=== PATIENT | female | born 1975 | race Hispanic/Latino ===

== ENCOUNTER 2019-09-18 18:52 | Inpatient (IN) | payer SELFPAY ==
[2019-09-18] MEDS ORDERED: NA CHLORIDE 0.9% 2,000 ML ONE (19:16)
[2019-09-18] MEDS ORDERED: IBUPROFEN 400 MG TAB ONE (19:28)
[2019-09-18] MEDS ORDERED: Levofloxacin 750mg IV 750 MG/150 ML BAG IV ONE (19:28)
[2019-09-18] MEDS ORDERED: IBUPROFEN 200 MG TAB PO ONE (19:28)
--- NOTE | 2019-09-18 19:46 | RAD REPORT ---
EXAM DESCRIPTION: RAD - Chest Single View - 09/18/2019 7:38 pm CLINICAL HISTORY: abd pain Chest pain. COMPARISON: No comparisons FINDINGS: Portable technique limits examination quality. The lungs are underinflated resulting in vascular crowding. The heart is normal in size. No displaced fractures. IMPRESSION: Underinflated lungs.
[2019-09-18 19:48] LABS: Absolute Lymphocytes (CBC) 0.6 K/uL (0.7-4.9); Basophils % 0.3 % (0-1.3); Hematocrit 34.2 % (36.0-45.0); MPV 9.5 fL (7.6-11.3); RBC Red Blood Cell Count 3.72 M/uL (3.86-4.86)
[2019-09-18 19:56] LABS: Protime INR 1.2
[2019-09-18 20:19] LABS: ALT/SGPT 14 U/L (12-78); AST/SGOT 11 U/L (15-37); Alkaline Phosphatase 74 U/L (45-117); BUN Blood Urea Nitrogen 16 mg/dL (7-18); Bicarbonate 25 mmol/L (21-32); Bilirubin Direct < 0.1 mg/dL (0-0.2); Bilirubin Total 0.3 mg/dL (0.2-1.0); CKMB Creatine Kinase MB < 1.0 ng/mL (0.3-3.6); Creatine Phosphokinase 16 U/L (26-192); Glucose Level 159 mg/dL (74-106); Lipase 73 U/L (73-393); Potassium 3.1 mmol/L (3.5-5.1); Protein, Total 6.2 g/dL (6.4-8.2); Sodium Level 135 mmol/L (136-145); Troponin (Emerg Dept Use Only) < 0.02 ng/mL (0.0-0.045)
[2019-09-18 20:21] LABS: Urine Blood 2+ (NEG); Urine Glucose NEGATIVE (NEG); Urine Protein 2+ (NEG); Urine pH 6.5 (5.0-7.0)
[2019-09-18 20:31] LABS: Urine Bacteria 20-50 /HPF (<20); Urine Culture Reflex Order REFLEXED
--- NOTE | 2019-09-18 20:50 | RAD REPORT ---
EXAM DESCRIPTION: CTAbdomen Pelvis W Contrast - 09/18/2019 8:36 pm CLINICAL HISTORY: Abdominal pain. ABD PAIN COMPARISON: <Comparisons> TECHNIQUE: Biphasic CT imaging of the abdomen and pelvis was performed with 100 ml non-ionic IV cont rast. All CT scans are performed using dose optimization technique as appropriate and may include automated exposure control or mA/KV adjustment according to patient size. FINDINGS: Mild subsegmental atelectasis is present in the right lung base. Innumerable varying size cysts are present throughout the liver. No biliary dilatation seen. The sple en, adrenal glands and pancreas are within normal limits. Innumerable cysts are present involving both kidneys. Mild perinephric inflammation is seen along the inferior margin of the right kidney. No bowel obstruction, free air, free fluid or abscess. The appendix is normal. No evidence of signi ficant lymphadenopathy. No suspicious bony findings. IMPRESSION: Polycystic kidney disease is present with mild inferiorly located perinephric inflammati on seen on the right. This may be result of recent cyst rupture or hemorrhage within a small cyst. Numerous benign-appearing hepatic cysts.
--- NOTE | 2019-09-18 21:15 | ER ---
Nurse's Notes [facility] Name: Patricia Eaton Age: 43 yrs Sex: Female : 1975 Arrival Date: 09/18/2019 Time: 18:57 Bed 15 Private MD: Diagnosis: Polycystic kidney, adult type;Acute Pyelonephritis Presentation: 09/18 19:05 Presenting complaint: EMS states: Pt C/O RLQ pain radiating to her Right flank for a wh week now, was seen by PCP yesterday and was given a shot and was advised to come back today but Pt said she wasn't able to come back to PCP because she was feeling earlier. Pt also C/O palpitations. Transition of care: patient was not received from another setting of care. Onset of symptoms was September 18, 2019. Risk Assessment: Do you want to hurt yourself or someone else? Patient reports no desire to harm self or others. Initial Sepsis Screen: Does the patient meet any 2 criteria? Temp <36.0*C (96.8*F)) or > 38.3*C (100.9*F). HR > 90 bpm. Does the patient have a suspected source of infection? Yes: Acute abdominal pain. Care prior to arrival: Medication(s) given: Normal saline infusion, 1000 mL, Fentanyl 50 mcg IV initiated. 20 GA, in the right antecubital area. 19:05 Method Of Arrival: EMS: [facility] 19:05 Acuity: CLARA 3 Triage Assessment: 19:38 General: Appears. 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 - Social history:: Smoking status: Patient/guardian denies using tobacco. - Ebola Screening: : Patient negative for fever greater than or equal to 101.5 degrees Fahrenheit, and additional compatible Ebola Virus Disease symptoms Patient denies exposure to infectious person. Screenin:38 Abuse screen: Denies threats or abuse. Denies injuries from another. Nutritional screening: No deficits noted. Tuberculosis screening: No symptoms or risk factors identified. Fall Risk None identified. Assessment: 19:39 General: Appears in no apparent distress. Behavior is calm, cooperative, appropriate for age. Pain: Complains of pain in right upper quadrant and right lower quadrant Pain radiates to back Pain currently is 6 out of 10 on a pain scale. Quality of pain is described as aching, Pain began a week ago. Neuro: Level of Consciousness is awake, alert, obeys commands, Oriented to person, place, time, situation, Appropriate for age. Cardiovascular: Heart tones S1 S2 Rhythm is sinus tachycardia. Respiratory: Airway is patent Respiratory effort is even, unlabored, Respiratory pattern is regular, symmetrical, Breath sounds are clear bilaterally. GI: Abdomen is flat, non-distended, Bowel sounds present X 4 quads. Abd is soft. : No signs and/or symptoms were reported regarding the genitourinary system. EENT: No signs and/or symptoms were reported regarding the EENT system. Derm: Skin is intact, is healthy with good turgor, Skin is pink, warm \T\ dry. normal. Musculoskeletal: Circulation, motion, and sensation intact. 21:01 Reassessment: Patient appears in no apparent distress at this time. No changes from previously documented assessment. Patient and/or family updated on plan of care and expected duration. Pain level reassessed. Patient is alert, oriented x 3, equal unlabored respirations, skin warm/dry/pink. Vital Signs: 19:10 BP 131 / 90; Pulse 138; Resp 18; Temp 103.2; Pulse Ox 97% ; Weight 52.16 kg; Height 5 wh ft. 2 in. (157.48 cm); Pain 6/10; 19:43 BP 126 / 82; Pulse 125; Resp 18; Pulse Ox 100% ; wh 21:01 BP 114 / 80; Pulse 115; Resp 18; Temp 99.8; Pulse Ox 100% ; wh 19:10 Body Mass Index 21.03 (52.16 kg, 157.48 cm) ED Course: 18:57 Patient arrived in ED. rb1 19:05 Mariano Duarte is Primary Nurse. 19:09 Triage completed. 19:13 Sriram Hill PA is PHCP. [facility] 19:13 Billy Gold MD is Attending Physician. [facility] 19:15 Inserted saline lock: 20 gauge in left antecubital area, using aseptic technique. Blood collected. By Chuyita Blanca RN. 19:37 Chest Single View XRAY In Process Unspecified. EDTX 19:38 Arm band placed on left wrist. 19:38 Patient has correct armband on for positive identification. Placed in gown. Bed in low wh position. Call light in reach. Side rails up X 1. environmental monitoring technician on. Pulse ox on. NIBP on. 20:36 CT Abd/Pelvis - IV Contrast Only In Process Unspecified. EDMS 21:13 Elmer Grant MD is Hospitalizing Provider. [facility] 21:40 No provider procedures requiring assistance completed. Patient admitted, IV remains in place. Administered Medications: 19:15 Drug: NS 0.9% (30 ml/kg) 30 ml/kg Route: IV; Rate: bolus; Site: right antecubital; 09/19 02:00 Follow up: IV Status: Completed infusion; IV Intake: 1500ml 09/18 19:36 Drug: LevaQUIN 750 mg Volume: 150 ml; Route: IVPB; Infused Over: 90 mins; Site: left antecubital; 19:36 Drug: Motrin 600 mg Route: PO; 09/19 01:59 Follow up: Response: No adverse reaction; Temperature is decreased Intake: 02:00 IV: 1500ml; Total: 1500ml. Outcome: 09/18 21:15 Decision to Hospitalize by Provider. [facility] 21:45 Admitted to Med/surg accompanied by tech, via wheelchair, room , with chart, Report called to Viridiana Nolan RN 21:45 Condition: stable 21:45 Instructed on the need for admit. 22:17 Patient left the ED. Signatures: Dispatcher [employer] EDMS Sriram Hill PA PA jmm Barber, Rebecca, RN Mariano Joy
--- NOTE | 2019-09-18 21:16 | EDPHYS ---
Physician Documentation [facility] Name: Patricia Eaton Age: 43 yrs Sex: Female : 1975 Arrival Date: 09/18/2019 Time: 18:57 Bed 15 Private MD: ED Physician Billy Gold HPI: 09/18 19:35 This 43 yrs old Female presents to ER via EMS with complaints of abdominal jmm pain, fever. 19:35 The patient presents with abdominal pain in the epigastric area, in the upper abdomen, jmm in the lower abdomen. Onset: The symptoms/episode began/occurred gradually, 4 day(s) ago. The symptoms do not radiate. Associated signs and symptoms: Pertinent positives: nausea, palpitations. This is a 43 year old female with a history of kidney stones that presents to the ED with complaints of abdominal pain beginning this past . Patient was seen by pcp yesterday and advised to return if symptoms worsen. patient also complains of mild cough. . 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 - Social history:: Smoking status: Patient/guardian denies using tobacco. - Ebola Screening: : Patient negative for fever greater than or equal to 101.5 degrees Fahrenheit, and additional compatible Ebola Virus Disease symptoms Patient denies exposure to infectious person. ROS: 19:35 Constitutional: Positive for fever. jmm 19:35 Respiratory: Positive for cough. 19:35 Abdomen/GI: Positive for abdominal pain. 19:35 All other systems are negative. Exam: 19:35 Head/Face: atraumatic. Eyes: EOMI, no conjunctival erythema appreciated ENT: Moist jmm Mucus Membranes Neck: Trachea midline, Supple Chest/axilla: Normal chest wall appearance and motion. 19:35 Constitutional: The patient appears alert, awake, uncomfortable. 19:35 Cardiovascular: Rate: tachycardic, Rhythm: regular. 19:35 Respiratory: the patient does not display signs of respiratory distress, Respirations: normal, Breath sounds: are clear throughout. 19:35 Abdomen/GI: Inspection: abdomen appears normal, Bowel sounds: normal, Palpation: soft, moderate abdominal tenderness, in the epigastric area, right upper quadrant and right lower quadrant. 19:35 Musculoskeletal/extremity: ROM: intact in all extremities. 19:35 Skin: Appearance: Color: normal in color. 19:35 Neuro: Orientation: is normal, Mentation: is normal, Memory: is normal. 19:35 Psych: Behavior/mood is pleasant, cooperative. Vital Signs: 19:10 BP 131 / 90; Pulse 138; Resp 18; Temp 103.2; Pulse Ox 97% ; Weight 52.16 kg; Height 5 wh ft. 2 in. (157.48 cm); Pain 6/10; 19:43 BP 126 / 82; Pulse 125; Resp 18; Pulse Ox 100% ; wh 21:01 BP 114 / 80; Pulse 115; Resp 18; Temp 99.8; Pulse Ox 100% ; wh 19:10 Body Mass Index 21.03 (52.16 kg, 157.48 cm) MDM: 19:16 Patient medically screened. suzi 21:11 Data reviewed: vital signs, nurses notes. Counseling: I had a detailed discussion with fracisco the patient and/or guardian regarding: the historical points, exam findings, and any diagnostic results supporting the discharge/admit diagnosis, lab results, radiology results, the need for further work-up and treatment in the hospital. ED course: I discussed the patient with Dr. Grant whom accepted admission. . 09/18 19:13 Order name: Basic Metabolic Panel 09/18 19:13 Order name: Blood Culture Adult (2) 09/18 19:13 Order name: CBC with Diff 09/18 19:13 Order name: Ckmb 09/18 19:13 Order name: CPK; Complete Time: 20:26 09/18 19:13 Order name: Lactate; Complete Time: 20:34 09/18 19:13 Order name: LFT's; Complete Time: 20:26 09/18 19:13 Order name: Lipase; Complete Time: 20:26 09/18 19:13 Order name: Procalcitonin 09/18 19:13 Order name: Protime (+inr); Complete Time: 20:13 09/18 19:13 Order name: Ptt, Activated; Complete Time: 20:13 09/18 19:13 Order name: Troponin (emerg Dept Use Only); Complete Time: 20:26 09/18 19:13 Order name: Urine Microscopic Only; Complete Time: 20:34 09/18 19:14 Order name: Basic Metabolic Panel; Complete Time: 20:26 [facility] 09/18 19:14 Order name: Blood Culture [facility] 09/18 19:14 Order name: CBC with Automated Diff EDMS 09/18 19:14 Order name: CKMB Creatine Kinase MB; Complete Time: 20:26 [facility] 09/18 19:15 Order name: Flu; Complete Time: 20:34 [facility] 09/18 19:30 Order name: Glucose, Ancillary Testing; Complete Time: 19:32 [facility] 09/18 19:57 Order name: Urine Dipstick--Ancillary (enter results); Complete Time: 20:26 [facility] 09/18 20:33 Order name: Urine Culture [facility] 09/18 21:16 Order name: Manual Differential [facility] 09/18 21:25 Order name: CBC with Automated Diff EDKS 09/18 21:25 Order name: CBC with Automated Diff EDMS 09/18 21:25 Order name: Comprehensive Metabolic Panel [facility] 09/18 21:25 Order name: Comprehensive Metabolic Panel [facility] 09/18 21:25 Order name: Magnesium EDKS 09/18 21:25 Order name: Magnesium [facility] 09/18 21:25 Order name: Phosphorus EDKS 09/18 19:13 Order name: Chest Single View XRAY; Complete Time: 20:26 09/18 19:13 Order name: Accucheck; Complete Time: 19:37 09/18 19:13 Order name: Cardiac monitoring; Complete Time: 19:37 09/18 19:13 Order name: EKG - Nurse/Tech; Complete Time: 19:37 09/18 19:13 Order name: IV Saline Lock - Large Bore; Complete Time: 19:37 09/18 19:13 Order name: Labs collected and sent; Complete Time: 19:37 09/18 19:13 Order name: O2 Per Protocol; Complete Time: 19:37 09/18 19:13 Order name: O2 Sat Monitoring; Complete Time: 19:36 09/18 19:13 Order name: Urine Dipstick-Ancillary (obtain specimen); Complete Time: 19:56 09/18 19:15 Order name: CT Abd/Pelvis - IV Contrast Only; Complete Time: 20:52 [facility] 09/18 21:25 Order name: Regular EDMS 09/18 21:25 Order name: Phosphorus [facility] Administered Medications: 19:15 Drug: NS 0.9% (30 ml/kg) 30 ml/kg Route: IV; Rate: bolus; Site: right antecubital; 09/19 02:00 Follow up: IV Status: Completed infusion; IV Intake: 1500ml 09/18 19:36 Drug: LevaQUIN 750 mg Volume: 150 ml; Route: IVPB; Infused Over: 90 mins; Site: left antecubital; 19:36 Drug: Motrin 600 mg Route: PO; 09/19 01:59 Follow up: Response: No adverse reaction; Temperature is decreased Disposition: 18:35 Co-signature as Attending Physician, Billy Gold MD I agree with the assessment and suzi plan of care. Disposition: 09/18/19 21:15 Hospitalization ordered by Elmer Grant for Observation. Preliminary diagnosis are Polycystic kidney, adult type, Acute Pyelonephritis. - Bed requested for Telemetry/MedSurg (observation). - Status is Observation. - Condition is Stable. - Problem is new. - Symptoms have improved. UTI on Admission? Yes Signatures: Dispatcher [employer] EDKS Billy Gold MD MD cha Mickail, Joel, PA PA [facility] Ellis Da Silva [facility] Mariano Duarte Corrections: (The following items were deleted from the chart) 09/18 21:16 19:52 CBC Smear Scan ordered. [facility] 21:36 21:15 Hospitalization Ordered by Elmer Grant MD for Observation. Preliminary jd2 diagnosis is Polycystic kidney, adult type; Acute Pyelonephritis. Bed requested for Telemetry/MedSurg (observation). Status is Observation. Condition is Stable. Problem is new. Symptoms have improved. UTI on Admission? Yes. [facility] 22:17 21:36 09/18/2019 21:15 Hospitalization Ordered by Elmer Grant MD for Observation. Preliminary diagnosis is Polycystic kidney, adult type; Acute Pyelonephritis. Bed requested for Telemetry/MedSurg (observation). Status is Observation. Condition is Stable. Problem is new. Symptoms have improved. UTI on Admission? Yes. jd2
[2019-09-18 21:18] LABS: Blood Morphology Comment NOT SEEN (NOT SEEN); Platelet Estimate ADEQ
[2019-09-18] MEDS ORDERED: ONDANSETRON 4 MG/2 ML VIAL IV PRN (21:20)
[2019-09-18] MEDS ORDERED: MORPHINE 2 MG/ML SYR IV PRN (21:22)
--- NOTE | 2019-09-18 21:28 | P.HP ---
Certification for Inpatient Patient admitted to: Inpatient With expected LOS: >2 Midnights Patient will require the following post-hospital care: None Practitioner: I am a practitioner with admitting privileges, knowledge of patient current condition, hospital course, and medical plan of care. Services: Services provided to patient in accordance with Admission requirements found in Title 42 Section 412.3 of the Code of Federal Regulations Patient History Date of Service: 09/18/19 Reason for admission: Fevers chills, flank pain possible pyelonephritis History of Present Illness: 43-year-old fees panic female with no significant past medical history came to ER with fever and chills and along with flank pain on the right side which has been going on for the last 2 days and been progressively worsening, she was seen in the PCPs office and had an antibiotic injection but as she continued to have spiking of fever and pain and was brought to ER Patient denies any nausea vomiting no sick contacts No chest pain or shortness of breath Patient was assessed in the ER and workup was consistent with possible pyelonephritis and was admitted for further management. Home medications list reviewed: Yes - Past Medical/Surgical History Past Medical History: Reviewed- Non-Contributory Past Surgical History: Reviewed- Non-Contributory -: - Family History Family History: Reviewed- Non-Contributory - Social History Smoking Status: Never smoker Physical Examination - Vital Signs Temperature: 102.2 F Blood Pressure: 122/76 Pulse: 82 Respirations: 18 - Physical Exam General: Alert, In no apparent distress, Oriented x3 HEENT: Atraumatic, Normocephalic Neck: Supple, 2+ carotid pulse no bruit Respiratory: Clear to auscultation bilaterally, Normal air movement Cardiovascular: Normal pulses, Regular rate/rhythm Capillary refill: <2 Seconds Gastrointestinal: Soft and benign, W/out hepatosplenomegaly, Tenderness Musculoskeletal: No clubbing, No swelling Integumentary: No rashes, No breakdown Neurological: Normal speech, Normal strength at 5/5 x4 extr Lymphatics: No axilla or inguinal lymphadenopathy Urinary: Other (No bladder distention, Tenderness in the right flank) External genitalia: Deferred Rectal: Deferred - Studies Laboratory Data (last 24 hrs) 09/18/19 19:20: PT 14.1 H, INR 1.20, APTT 30.1 09/18/19 19:20: WBC 12.5 H, Hgb 11.6 L, Hct 34.2 L, Plt Count 166 09/18/19 19:20: Sodium 135 L, Potassium 3.1 L, BUN 16, Creatinine 1.34 H, Glucose 159 H, Total Bilirubin 0.3, AST 11 L, ALT 14, Alkaline Phosphatase 74, Lipase 73 Microbiology Data (last 24 hrs): 09/18/19 19:20 Nasopharnyx Influenza Type A Antigen Screen - Final 09/18/19 19:20 Nasopharnyx Influenza Type B Antigen Screen - Final Assessment and Plan - Problems (Diagnosis) (1) Pyelonephritis Current Visit: Yes Status: Acute (2) Acute kidney injury Current Visit: Yes Status: Acute (3) Hyponatremia Current Visit: Yes Status: Acute (4) Hypokalemia Current Visit: Yes Status: Acute (5) Sepsis Current Visit: Yes Status: Acute (6) Polycystic kidney Current Visit: Yes Status: Acute - Plan Pyelonephritis Acute kidney injury Hyponatremia Hypokalemia Polycystic kidney Sepsis Dehydration Plan monitor under telemetry Aggressive hydration IV antibiotics after getting cultures change antibiotic as per the sensitivity Electrolytes replaced Pain control monitor BMP daily GI/DVT prophylaxis - Advance Directives Does patient have a Living Will: No Does patient have a Durable POA for Healthcare: No Time Spent Managing Pts Care (In Minutes): 46
[2019-09-18] MEDS: NA CHLORIDE 0.9% 1,000 ML IV SCH (22:00)
[2019-09-18] MEDS ORDERED: Levofloxacin 750mg IV 750 MG/150 ML BAG IV SCH (22:00)
[2019-09-18 22:15] VITALS: BMI 24.1
[2019-09-18] MEDS ORDERED: POTASSIUM CL SA 10 MEQ TAB PO ONE ×2 (23:00→23:36)
[2019-09-19 06:32] LABS: Absolute Lymphocytes (CBC) 0.6 K/uL (0.7-4.9); Basophils % 0.2 % (0-1.3); Hematocrit 30.8 % (36.0-45.0); Lymphocytes % 5.4 % (15.3-44.8); MPV 9.2 fL (7.6-11.3); RBC Red Blood Cell Count 3.32 M/uL (3.86-4.86)
[2019-09-19 06:52] LABS: Albumin 1.8 g/dL (3.4-5.0); Bilirubin Total 0.2 mg/dL (0.2-1.0); Magnesium 2.3 mg/dL (1.8-2.4); Phosphorus 1.3 mg/dL (2.5-4.9); Potassium 3.8 mmol/L (3.5-5.1); Protein, Total 5.7 g/dL (6.4-8.2)
[2019-09-19] MEDS: NA CHLORIDE 0.9% 1,000 ML IV SCH ×2 (07:14→18:50)
[2019-09-19] MEDS ORDERED: NA CHLORIDE 0.9% 1,000 ML ONE (07:15)
[2019-09-19] MEDS ORDERED: POTASSIUM CL SA 10 MEQ TAB PO ONE ×2 (08:15→09:00)
[2019-09-19] MEDS: POTASS/SODIUM PHOSPHATE 1 PKT POWD.PACK PO SCH ×3 (08:58→11:47)
--- NOTE | 2019-09-19 11:30 | P.PN ---
Subjective Date of Service: 09/19/19 Chief Complaint: Fevers chills, flank pain possible pyelonephritis The patient reports less pain in her right flank today. She had fever yesterday. Blood culture is growing Gram negative rods. She denies any nausea or vomiting and tolerating feeding. Physical Examination - Vital Signs Temperature: 98.2 F Blood Pressure: 109/75 Pulse: 109 Respirations: 20 Pulse Ox (%): 100 - Physical Exam General: Alert, In no apparent distress, Oriented x3 HEENT: Mucous membr. moist/pink Neck: JVD not distended Respiratory: Clear to auscultation bilaterally, Normal air movement Cardiovascular: No edema, Regular rate/rhythm (Tachycardic), Normal S1 S2 Gastrointestinal: Normal bowel sounds, Soft and benign, Non-distended, No tenderness, Other (Right costovertebral angle tenderness.) Integumentary: No rashes, No erythema Neurological: Normal speech, Normal strength at 5/5 x4 extr - Studies Laboratory Data (last 24 hrs) 09/18/19 19:20: PT 14.1 H, INR 1.20, APTT 30.1 09/18/19 19:20: WBC 12.5 H, Hgb 11.6 L, Hct 34.2 L, Plt Count 166 09/18/19 19:20: Sodium 135 L, Potassium 3.1 L, BUN 16, Creatinine 1.34 H, Glucose 159 H, Total Bilirubin 0.3, AST 11 L, ALT 14, Alkaline Phosphatase 74, Lipase 73 Microbiology Data (last 24 hrs): 09/18/19 19:20 Blood - Blood Gram Stain - Final 09/18/19 19:25 Blood - Blood Gram Stain - Final 09/18/19 19:20 Nasopharnyx Influenza Type A Antigen Screen - Final 09/18/19 19:20 Nasopharnyx Influenza Type B Antigen Screen - Final Assessment And Plan - Current Problems (Diagnosis) (1) Gram negative sepsis Current Visit: Yes Status: Acute (2) Pyelonephritis Current Visit: Yes Status: Acute (3) Polycystic kidney Current Visit: Yes Status: Chronic (4) Sepsis Current Visit: Yes Status: Acute - Plan Continue IV Levaquin Add IV Azactam Repeat blood culture today. Follow blood cultures and urine culture for organism identification and sensitivity. Supportive measures-IV hydration and pain management.
[2019-09-19] MEDS: ACETAMINOPHEN 500 MG TAB PO PRN (11:47)
[2019-09-19] MEDS ORDERED: AZTREONAM 1 GM/VIAL IV SCH (12:00)
[2019-09-19] MEDS ORDERED: AZTREONAM 1 GM/50 ML BAG IV SCH (13:00)
[2019-09-19] MEDS: AZTREONAM 1 GM in NA CHLORIDE 0.9% 100 ML IV SCH ×2 (13:01→17:14)
[2019-09-19] MEDS: HYDROCODONE/APAP 7.5/325 MG TAB PO PRN (17:12)
[2019-09-19] MEDS: Levofloxacin 750mg IV 750 MG/150 ML BAG IV SCH (21:02)
[2019-09-20] MEDS: ACETAMINOPHEN 500 MG TAB PO PRN ×2 (00:19→20:56)
[2019-09-20] MEDS: AZTREONAM 1 GM in NA CHLORIDE 0.9% 100 ML IV SCH ×3 (00:20→18:47)
[2019-09-20] MEDS: NA CHLORIDE 0.9% 1,000 ML IV SCH ×2 (05:23→13:09)
[2019-09-20 06:05] LABS: Absolute Lymphocytes (CBC) 1.1 K/uL (0.7-4.9); Basophils % 0.2 % (0-1.3); Hematocrit 31.9 % (36.0-45.0); Lymphocytes % 6.8 % (15.3-44.8); MPV 8.8 fL (7.6-11.3); RBC Red Blood Cell Count 3.39 M/uL (3.86-4.86)
[2019-09-20 06:15] LABS: Phosphorus 2.1 mg/dL (2.5-4.9); Potassium 3.6 mmol/L (3.5-5.1)
--- NOTE | 2019-09-20 08:12 | EKG ---
Test Date: 2019-09-18 Test Time: 19:13:12 Rd Scientist: LENARD MEASUREMENT RESULTS: Intervals: Rate: 135 CA: 126 QRSD: 84 QT: 286 QTc: 429 Beulah: P: 43 CA: 126 QRS: 6 T: 48 INTERPRETIVE STATEMENTS: Sinus tachycardia Otherwise normal ECG No previous ECG available for comparison Electronically Signed On 09-20-19 08:10:24 DIRECTOR OF SEARCH ENGINE MARKETING by Sterling Gillis
[2019-09-20] MEDS ORDERED: POTASSIUM CL SA 10 MEQ TAB PO ONE (09:00)
[2019-09-20] MEDS ORDERED: VANCOMYCIN 1.25 GM in NA CHLORIDE 0.9% 250 ML IVPB SCH (09:00)
[2019-09-20] MEDS: POTASS/SODIUM PHOSPHATE 1 PKT POWD.PACK PO SCH ×3 (09:35→11:24)
[2019-09-20] MEDS: VANCOMYCIN/NS 1 gm 1 GM/250 ML BAG IV SCH (11:24)
--- NOTE | 2019-09-20 12:29 | P.PN ---
Subjective Date of Service: 09/20/19 Chief Complaint: Fevers chills, flank pain possible pyelonephritis Subjective: No new changes, No C/O voiced (seen , no new c/o , still fevers) Review of Systems 10-point ROS is otherwise unremarkable Physical Examination - Vital Signs Temperature: 99.6 F Blood Pressure: 112/82 Pulse: 117 Respirations: 20 Pulse Ox (%): 96 - Physical Exam General: Alert, Oriented x3 HEENT: Atraumatic, Normocephalic, PERRLA Neck: Supple, 2+ carotid pulse no bruit Respiratory: Clear to auscultation bilaterally, Normal air movement Cardiovascular: No edema, Normal pulses Gastrointestinal: Normal bowel sounds, Soft and benign Neurological: Normal gait, Normal speech, Normal strength at 5/5 x4 extr - Studies Laboratory Last Values WBC 16.3 K/uL (4.3-10.9) H D 09/20/19 05:18 RBC 3.39 M/uL (3.86-4.86) L 09/20/19 05:18 Hgb 10.6 g/dL (12.0-15.0) L 09/20/19 05:18 Hct 31.9 % (36.0-45.0) L 09/20/19 05:18 MCV 94.0 fL (80-100) 09/20/19 05:18 MCH 31.3 pg (27.0-35.0) 09/20/19 05:18 MCHC 33.3 g/dL (32.0-36.0) 09/20/19 05:18 RDW 14.1 % (12.1-15.2) 09/20/19 05:18 Plt Count 153 K/uL (152-406) 09/20/19 05:18 MPV 8.8 fL (7.6-11.3) 09/20/19 05:18 Neutrophils % 86.5 % (41.7-73.7) H 09/20/19 05:18 Lymphocytes % 6.8 % (15.3-44.8) L 09/20/19 05:18 Monocytes % 6.3 % (3.3-12.3) 09/20/19 05:18 Eosinophils % 0.2 % (0-4.4) 09/20/19 05:18 Basophils % 0.2 % (0-1.3) 09/20/19 05:18 Absolute Neutrophils 14.1 K/uL (1.8-8.0) H 09/20/19 05:18 Segmented Neutrophils 85 % (40-80) H 09/18/19 19:20 Band Neutrophils 8 % (0-1) H 09/18/19 19:20 Absolute Lymphocytes 1.1 K/uL (0.7-4.9) 09/20/19 05:18 Lymphocytes 7 % (15-42) L 09/18/19 19:20 Monocytes 0 % (0-10) 09/18/19 19:20 Absolute Monocytes 1.0 K/uL (0.1-1.3) 09/20/19 05:18 Absolute Eosinophils 0.0 K/uL (0-0.5) 09/20/19 05:18 Absolute Basophils 0.0 K/uL (0-0.5) 09/20/19 05:18 Morphology Comment Not seen (NOT SEEN) 09/18/19 19:20 PT 14.1 SECONDS (9.5-12.5) H 09/18/19 19:20 INR 1.20 09/18/19 19:20 APTT 30.1 SECONDS (24.3-36.9) 09/18/19 19:20 Sodium 140 mmol/L (136-145) 09/20/19 05:18 Potassium 3.6 mmol/L (3.5-5.1) 09/20/19 05:18 Chloride 113 mmol/L (98-107) H 09/20/19 05:18 Carbon Dioxide 17 mmol/L (21-32) L 09/20/19 05:18 BUN 12 mg/dL (7-18) 09/20/19 05:18 Creatinine 1.03 mg/dL (0.55-1.3) 09/20/19 05:18 Estimated GFR 59 mL/min (=/>90) L 09/20/19 05:18 Glucose 124 mg/dL (74-106) H 09/20/19 05:18 POC Glucose 114 mg/dl (65-120) 09/19/19 07:40 Lactic Acid 1.4 mmol/L (0.4-2.0) 09/18/19 17:20 Calcium 7.3 mg/dL (8.5-10.1) L 09/20/19 05:18 Phosphorus 2.1 mg/dL (2.5-4.9) L D 09/20/19 05:18 Magnesium 2.3 mg/dL (1.8-2.4) 09/19/19 05:35 Total Bilirubin 0.2 mg/dL (0.2-1.0) 09/19/19 05:35 Direct Bilirubin < 0.1 mg/dL (0-0.2) 09/18/19 19:20 AST 14 U/L (15-37) L 09/19/19 05:35 ALT 14 U/L (12-78) 09/19/19 05:35 Alkaline Phosphatase 95 U/L (45-117) 09/19/19 05:35 Creatine Kinase 16 U/L (26-192) L 09/18/19 19:20 CK-MB (CK-2) < 1.0 ng/mL (0.3-3.6) 09/18/19 19:20 Rapid Troponin I < 0.02 ng/mL (0.0-0.045) 09/18/19 19:20 Serum Total Protein 5.7 g/dL (6.4-8.2) L 09/19/19 05:35 Albumin 1.8 g/dL (3.4-5.0) L 09/19/19 05:35 Globulin 3.9 g/dL (2.3-3.5) H 09/19/19 05:35 Albumin/Globulin Ratio 0.5 (1.1-1.8) L 09/19/19 05:35 Lipase 73 U/L (73-393) 09/18/19 19:20 Procalcitonin 11.55 ng/mL (<0.50) H 09/18/19 19:20 Urine pH 6.5 (5.0-7.0) 09/18/19 19:57 Ur Specific [place] 1.020 (1.005-1.030) 09/18/19 19:57 Urine Ketones Negative (NEG) 09/18/19 19:57 Urine Blood 2+ (NEG) H 09/18/19 19:57 Urine Nitrite Negative (NEG) 09/18/19 19:57 Ur Leukocyte Esterase 1+ (NEG) H 09/18/19 19:57 Urine RBC 10-20 /HPF (NONE SEEN) H 09/18/19 19:50 Urine WBC 10-20 /HPF (<5) H 09/18/19 19:50 Ur Squamous Epith Cells 10-20 /HPF (NONE SEEN) H 09/18/19 19:50 Urine Bacteria 20-50 /HPF (<20) H 09/18/19 19:50 Urine Culture Reflexed Reflexed 09/18/19 19:50 Urine Glucose Negative (NEG) 09/18/19 19:57 Urine Total Protein 2+ (NEG) H 09/18/19 19:57 Smear Scan Cancelled 09/18/19 19:20 Microbiology Data (last 24 hrs): 09/18/19 19:20 Blood - Blood Gram Stain - Final 09/18/19 19:20 Blood - Blood Gram Stain - Final 09/18/19 19:25 Blood - Blood Gram Stain - Final 09/18/19 19:25 Blood - Blood Gram Stain - Final Medications List Reviewed: Yes Assessment & Plan - Problems (Diagnosis) (1) Acute kidney injury Current Visit: Yes Status: Acute (2) Gram negative sepsis Current Visit: Yes Status: Acute (3) Hypokalemia Current Visit: Yes Status: Acute (4) Pyelonephritis Current Visit: Yes Status: Acute (5) Polycystic kidney Current Visit: Yes Status: Chronic Discharge Plan: Home Plan to discharge in: 24 Hours - Code Status/Comfort Care Code Status Assessed: Yes Physician Review: Patient Assessed, Agree with Above Assessment and Plan Physician Review Additional Text: # Fever with staph and gram neg bacteremia - possible contamination of sample with staph coagulase neg gram + cocci -But given persistent fevers , will add vanco , c/w levaquin -follow repeat blood cx today -will obtain echo to r/o vegetations # Pyelo - on levaquin , urine cx with mixed alka # Polycystic kidney disease hx -with cyst rupture - if persistent fever , will d/w with IR to see if ruptured cyst can be drained for possible abscess collection Critical Care: Yes
[2019-09-20] MEDS: HYDROCODONE/APAP 7.5/325 MG TAB PO PRN (13:08)
[2019-09-20] MEDS: Levofloxacin 750mg IV 750 MG/150 ML BAG IV SCH (20:07)
[2019-09-20 22:46] VITALS: O2SAT 95
[2019-09-21] MEDS: NA CHLORIDE 0.9% 1,000 ML IV SCH ×3 (00:07→20:00)
[2019-09-21] MEDS: AZTREONAM 1 GM in NA CHLORIDE 0.9% 100 ML IV SCH ×3 (00:07→17:59)
[2019-09-21] MEDS: ACETAMINOPHEN 500 MG TAB PO PRN ×2 (00:32→21:03)
[2019-09-21 05:58] LABS: Basophils % 0.2 % (0-1.3); Hematocrit 27.4 % (36.0-45.0); Lymphocytes % 6.5 % (15.3-44.8); MPV 8.5 fL (7.6-11.3); RBC Red Blood Cell Count 2.99 M/uL (3.86-4.86)
[2019-09-21 06:10] LABS: Albumin 1.4 g/dL (3.4-5.0); Bilirubin Total 0.3 mg/dL (0.2-1.0); Phosphorus 2.8 mg/dL (2.5-4.9); Potassium 3.5 mmol/L (3.5-5.1); Protein, Total 5.2 g/dL (6.4-8.2)
[2019-09-21] MEDS: VANCOMYCIN/NS 1 gm 1 GM/250 ML BAG IV SCH (08:58)
[2019-09-21] MEDS: HYDROCODONE/APAP 7.5/325 MG TAB PO PRN (09:00)
[2019-09-21] MEDS ORDERED: POTASSIUM CL SA 10 MEQ TAB PO ONE (09:00)
[2019-09-21] MEDS ORDERED: POTASSIUM 25 MEQ EFFERV TAB PO ONE (11:38)
--- NOTE | 2019-09-21 11:38 | P.PN ---
Subjective Date of Service: 09/21/19 Chief Complaint: Fevers chills, flank pain possible pyelonephritis Subjective: No new changes (still fevers , still loin pain) Review of Systems 10-point ROS is otherwise unremarkable Physical Examination - Vital Signs Temperature: 99.3 F Blood Pressure: 121/87 Pulse: 102 Respirations: 18 Pulse Ox (%): 98 - Physical Exam General: Alert, In no apparent distress, Oriented x3 HEENT: Atraumatic, Normocephalic, PERRLA Neck: Supple, 2+ carotid pulse no bruit Respiratory: Clear to auscultation bilaterally, Normal air movement Cardiovascular: Normal pulses, Regular rate/rhythm, Normal S1 S2 Musculoskeletal: No clubbing, No swelling Integumentary: No rashes, No breakdown Neurological: Normal speech, Normal strength at 5/5 x4 extr - Studies Laboratory Last Values WBC 15.1 K/uL (4.3-10.9) H 09/21/19 05:33 RBC 2.99 M/uL (3.86-4.86) L 09/21/19 05:33 Hgb 9.1 g/dL (12.0-15.0) L 09/21/19 05:33 Hct 27.4 % (36.0-45.0) L 09/21/19 05:33 MCV 91.6 fL (80-100) 09/21/19 05:33 MCH 30.4 pg (27.0-35.0) 09/21/19 05:33 MCHC 33.1 g/dL (32.0-36.0) 09/21/19 05:33 RDW 14.1 % (12.1-15.2) 09/21/19 05:33 Plt Count 200 K/uL (152-406) D 09/21/19 05:33 MPV 8.5 fL (7.6-11.3) 09/21/19 05:33 Neutrophils % 84.9 % (41.7-73.7) H 09/21/19 05:33 Lymphocytes % 6.5 % (15.3-44.8) L 09/21/19 05:33 Monocytes % 8.3 % (3.3-12.3) 09/21/19 05:33 Eosinophils % 0.1 % (0-4.4) 09/21/19 05:33 Basophils % 0.2 % (0-1.3) 09/21/19 05:33 Absolute Neutrophils 12.8 K/uL (1.8-8.0) H 09/21/19 05:33 Segmented Neutrophils 85 % (40-80) H 09/18/19 19:20 Band Neutrophils 8 % (0-1) H 09/18/19 19:20 Absolute Lymphocytes 1.0 K/uL (0.7-4.9) 09/21/19 05:33 Lymphocytes 7 % (15-42) L 09/18/19 19:20 Monocytes 0 % (0-10) 09/18/19 19:20 Absolute Monocytes 1.3 K/uL (0.1-1.3) 09/21/19 05:33 Absolute Eosinophils 0.0 K/uL (0-0.5) 09/21/19 05:33 Absolute Basophils 0.0 K/uL (0-0.5) 09/21/19 05:33 Morphology Comment Not seen (NOT SEEN) 09/18/19 19:20 PT 14.1 SECONDS (9.5-12.5) H 09/18/19 19:20 INR 1.20 09/18/19 19:20 APTT 30.1 SECONDS (24.3-36.9) 09/18/19 19:20 Sodium 140 mmol/L (136-145) 09/21/19 05:33 Potassium 3.5 mmol/L (3.5-5.1) 09/21/19 05:33 Chloride 111 mmol/L (98-107) H 09/21/19 05:33 Carbon Dioxide 22 mmol/L (21-32) 09/21/19 05:33 BUN 14 mg/dL (7-18) 09/21/19 05:33 Creatinine 1.06 mg/dL (0.55-1.3) 09/21/19 05:33 Estimated GFR 57 mL/min (=/>90) L 09/21/19 05:33 Glucose 153 mg/dL (74-106) H 09/21/19 05:33 POC Glucose 114 mg/dl (65-120) 09/19/19 07:40 Lactic Acid 1.4 mmol/L (0.4-2.0) 09/18/19 17:20 Calcium 7.5 mg/dL (8.5-10.1) L 09/21/19 05:33 Phosphorus 2.8 mg/dL (2.5-4.9) 09/21/19 05:33 Magnesium 2.3 mg/dL (1.8-2.4) 09/19/19 05:35 Total Bilirubin 0.3 mg/dL (0.2-1.0) 09/21/19 05:33 Direct Bilirubin < 0.1 mg/dL (0-0.2) 09/18/19 19:20 AST 15 U/L (15-37) 09/21/19 05:33 ALT 15 U/L (12-78) 09/21/19 05:33 Alkaline Phosphatase 94 U/L (45-117) 09/21/19 05:33 Creatine Kinase 16 U/L (26-192) L 09/18/19 19:20 CK-MB (CK-2) < 1.0 ng/mL (0.3-3.6) 09/18/19 19:20 Rapid Troponin I < 0.02 ng/mL (0.0-0.045) 09/18/19 19:20 Serum Total Protein 5.2 g/dL (6.4-8.2) L 09/21/19 05:33 Albumin 1.4 g/dL (3.4-5.0) L 09/21/19 05:33 Globulin 3.8 g/dL (2.3-3.5) H 09/21/19 05:33 Albumin/Globulin Ratio 0.4 (1.1-1.8) L 09/21/19 05:33 Lipase 73 U/L (73-393) 09/18/19 19:20 Procalcitonin 11.55 ng/mL (<0.50) H 09/18/19 19:20 Urine pH 6.5 (5.0-7.0) 09/18/19 19:57 Ur Specific [place] 1.020 (1.005-1.030) 09/18/19 19:57 Urine Ketones Negative (NEG) 09/18/19 19:57 Urine Blood 2+ (NEG) H 09/18/19 19:57 Urine Nitrite Negative (NEG) 09/18/19 19:57 Ur Leukocyte Esterase 1+ (NEG) H 09/18/19 19:57 Urine RBC 10-20 /HPF (NONE SEEN) H 09/18/19 19:50 Urine WBC 10-20 /HPF (<5) H 09/18/19 19:50 Ur Squamous Epith Cells 10-20 /HPF (NONE SEEN) H 09/18/19 19:50 Urine Bacteria 20-50 /HPF (<20) H 09/18/19 19:50 Urine Culture Reflexed Reflexed 09/18/19 19:50 Urine Glucose Negative (NEG) 09/18/19 19:57 Urine Total Protein 2+ (NEG) H 09/18/19 19:57 Smear Scan Cancelled 09/18/19 19:20 Microbiology Data (last 24 hrs): 09/18/19 19:50 Clean Catch Urine [place] Count - Final >100,000 CFU/ML. 09/18/19 19:50 Clean Catch Urine - Final MIXED ALKA. 09/18/19 19:20 Blood - Blood Aerobic Blood Culture - Final Escherichia Coli 09/18/19 19:20 Blood - Blood Gram Stain - Final 09/18/19 19:20 Blood - Blood Anaerobic Blood Culture - Final Escherichia Coli 09/18/19 19:20 Blood - Blood Gram Stain - Final 09/18/19 19:25 Blood - Blood Aerobic Blood Culture - Final Escherichia Coli 09/18/19 19:25 Blood - Blood Gram Stain - Final 09/18/19 19:25 Blood - Blood Anaerobic Blood Culture - Final Escherichia Coli 09/18/19 19:25 Blood - Blood Gram Stain - Final Medications List Reviewed: Yes Assessment & Plan - Problems (Diagnosis) (1) Acute kidney injury Current Visit: Yes Status: Acute (2) Gram negative sepsis Current Visit: Yes Status: Acute (3) Hypokalemia Current Visit: Yes Status: Acute (4) Pyelonephritis Current Visit: Yes Status: Acute (5) Polycystic kidney Current Visit: Yes Status: Chronic Physician Review: Patient Assessed, Agree with Above Assessment and Plan Physician Review Additional Text: # Fever with staph and gram neg bacteremia - continue abx - follow new blood cx 09/20- possible contamination of sample with staph coagulase neg gram + cocci -But given persistent fevers , will add vanco , c/w levaquin -follow repeat blood cx today -will obtain echo to r/o vegetations # Pyelonephritis - on levaquin , urine cx with mixed alka # Polycystic kidney disease hx -with cyst rupture - since persistent fevers , will obtain CT abdomen today to r/o worsneing fluid collection /abscess - may need IR drainage
[2019-09-21] MEDS ORDERED: POTASSIUM PHOS 20 MM in NA CHLORIDE 0.9% 500 ML IV ONE (11:40)
--- NOTE | 2019-09-21 12:58 | RAD REPORT ---
EXAM DESCRIPTION: CT - Abdomen Pelvis W Contrast - 09/21/2019 12:25 pm CLINICAL HISTORY: cyst rupture , r/o abscessright lower quadrant pain, possible cyst rupture with ab scess COMPARISON: CT September 18 TECHNIQUE: Biphasic, helical CT imaging of the abdomen and pelvis was performed following 100 ml non -ionic IV contrast. No oral contrast administered. All CT scans are performed using dose optimization technique as appropriate and may include automated exposure control or mA/KV adjustment according to patient size. FINDINGS: Small bilateral pleural effusions have developed with partial atelectasis of each lower lo be. Innumerable variably sized cysts are again identified in the liver parenchyma. No solid mass lesion. No new finding. Spleen, pancreas and biliary tree are unchanged. No new gallbladder finding. Bilateral renal parenchymal function is seen. No hydronephrosis. Patient has innumerable variably siz ed cysts throughout the renal parenchyma. The retroperitoneal stranding along the inferior margin of the right kidney seen on the September 18 study has improved but not fully resolved. No abscess or oth er complicating factor has developed. No extravasation of contrast. No solid mass lesion confirmed. R enal parenchymal assessment is difficult given the numerous cysts and variable attenuation. Urinary b ladder is mostly contracted. Uterus and ovaries show no suspicious findings. There is a small amount of free fluid in the cul de sac. This is fluid attenuation and not suspicious for blood. This is with in physiologic limits. No adrenal abnormalities. No dilated bowel loops or bowel wall thickening. No free air or pneumatosis. No new mass or bulky l ymphadenopathy. No suspicious bony findings. IMPRESSION: Previously detailed stranding in the retroperitoneal fatty tissues inferior margin of th e right kidney has improved but not fully resolved. No abscess or other complicating factor. Small physiologic quantity of free fluid in the cul de sac. Polycystic kidneys and multiple liver cysts are not grossly different from the September 18 imaging.
[2019-09-21] MEDS ORDERED: guaiFENesin 100 MG/5 ML UCUP PO PRN (13:56)
--- NOTE | 2019-09-21 14:06 | ECHO ---
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 CARDIAC HISTORY: CATHERIZATION: NO SURGERY: NO PROSTHETIC VALVE: NO PACEMAKER: NO MEASUREMENTS (cm) DIASTOLIC (NORMALS) SYSTOLIC (NORMALS) IVSd 0.7 (0.6-1.2) LA Diam 2.6 (1.9-4.0) LVEF 59% LVIDd 2.7 (3.5-5.7) LVIDs 1.9 (2.0-3.5) %FS 30% LVPWd 0.7 (0.6-1.2) Ao Diam 2.0 (2.0-3.7) 2 DIMENSIONAL ASSESSMENT: RIGHT ATRIUM: NORMAL LEFT ATRIUM: NORMAL RIGHT VENTRICLE: NORMAL LEFT VENTRICLE: NORMAL TRICUSPID VALVE: NORMAL MITRAL VALVE: NORMAL PULMONIC VALVE: NORMAL AORTIC VALVE: NORMAL PERICARDIAL EFFUSION: NONE AORTIC ROOT: NORMAL LEFT VENTRICULAR WALL MOTION: NORMAL DOPPLER/COLOR FLOW: MILD TRICUSPID REGURGITATION. COMMENTS: MILD TRICUSPID REGURGITATION. NORMAL LEFT VENTRICULAR SIZE AND FUNCTION. NO WALL MOTION ABNORMALITY. NO EFFUSION. TECHNOLOGIST: Sindi COPELAND
[2019-09-21] MEDS: Levofloxacin 750mg IV 750 MG/150 ML BAG IV SCH (21:04)
[2019-09-21] MEDS ORDERED: IBUPROFEN 600 MG TAB PO ONE (22:12)
[2019-09-22] MEDS: AZTREONAM 1 GM in NA CHLORIDE 0.9% 100 ML IV SCH ×2 (01:24→09:01)
[2019-09-22 05:55] LABS: Potassium 3.6 mmol/L (3.5-5.1)
[2019-09-22] MEDS ORDERED: POTASSIUM CL SA 10 MEQ TAB PO ONE (06:00)
[2019-09-22 06:04] LABS: Absolute Lymphocytes (CBC) 1.2 K/uL (0.7-4.9); Basophils % 0.3 % (0-1.3); Hematocrit 28.4 % (36.0-45.0); Lymphocytes % 8.3 % (15.3-44.8); MPV 8.4 fL (7.6-11.3); RBC Red Blood Cell Count 3.07 M/uL (3.86-4.86)
[2019-09-22] MEDS: NA CHLORIDE 0.9% 1,000 ML IV SCH (06:39)
[2019-09-22] MEDS: VANCOMYCIN/NS 1 gm 1 GM/250 ML BAG IV SCH (09:00)
[2019-09-22 09:01] LABS: Blood Morphology Comment NOT SEEN (NOT SEEN); Platelet Estimate ADEQ
--- NOTE | 2019-09-22 11:56 | P.DS ---
Admission Date: 09/18/19 Discharge Date: 09/22/19 Disposition: ROUTINE DISCHARGE Discharge Condition: GOOD Reason for Admission: Fevers chills, flank pain possible pyelonephritis - Problems (1) Acute kidney injury Current Visit: Yes Status: Acute (2) Gram negative sepsis Current Visit: Yes Status: Acute (3) Hypokalemia Current Visit: Yes Status: Acute (4) Pyelonephritis Current Visit: Yes Status: Acute (5) Polycystic kidney Current Visit: Yes Status: Chronic Brief History of Present Illness: Patient with no past medical history admitted for right flank pain, dysuria of persistent fever Hospital Course: Patient on admission was noted with UTIs in with right pyelonephritis and E coli bacteremia on blood culture. She also has positive Staph coagulase- negative which was felt to be due to contamination. Repeat blood culture after after antibiotics shows clearance of her E coli bacteremia but persistent gram + cocci in 1/2 bottles which was again felt to be contamination. She was noted with polycystic kidneys and multiple cysts in the liver and was diagnosed with polycystic kidney disease on presentation. She will be discharged with Levaquin antibiotics for a 14 day course. Patient is advised to follow up with a completion supervisor as an outpatient for polycystic kidney disease. Vital Signs/Physical Exam: Temp Pulse Resp BP Pulse Ox 98.5 F 99 H 18 118/80 100 09/22/19 08:00 09/22/19 08:00 09/22/19 08:00 09/22/19 08:00 09/22/19 08:00 General: Alert, Oriented x3 HEENT: Atraumatic, Normocephalic Neck: Supple, 2+ carotid pulse no bruit Respiratory: Clear to auscultation bilaterally, Normal air movement Cardiovascular: No edema, Normal pulses, Regular rate/rhythm, Normal S1 S2 Gastrointestinal: Normal bowel sounds, Soft and benign, W/out hepatomegaly, No tenderness Musculoskeletal: No clubbing, No swelling Integumentary: No rashes, No breakdown Neurological: Normal gait, Normal speech, Normal strength at 5/5 x4 extr Laboratory Data at Discharge: WBC 14.7 K/uL (4.3-10.9) H 09/22/19 05:17 Hgb 9.4 g/dL (12.0-15.0) L 09/22/19 05:17 Hct 28.4 % (36.0-45.0) L 09/22/19 05:17 Plt Count 287 K/uL (152-406) D 09/22/19 05:17 PT 14.1 SECONDS (9.5-12.5) H 09/18/19 19:20 INR 1.20 09/18/19 19:20 APTT 30.1 SECONDS (24.3-36.9) 09/18/19 19:20 Sodium 140 mmol/L (136-145) 09/22/19 05:17 Potassium 3.6 mmol/L (3.5-5.1) 09/22/19 05:17 BUN 13 mg/dL (7-18) 09/22/19 05:17 Creatinine 1.03 mg/dL (0.55-1.3) 09/22/19 05:17 Glucose 139 mg/dL (74-106) H 09/22/19 05:17 Phosphorus 2.8 mg/dL (2.5-4.9) 09/21/19 05:33 Magnesium 2.3 mg/dL (1.8-2.4) 09/19/19 05:35 Total Bilirubin 0.3 mg/dL (0.2-1.0) 09/21/19 05:33 AST 15 U/L (15-37) 09/21/19 05:33 ALT 15 U/L (12-78) 09/21/19 05:33 Alkaline Phosphatase 94 U/L (45-117) 09/21/19 05:33 Lipase 73 U/L (73-393) 09/18/19 19:20 Home Medications: Levofloxacin [Levaquin] 500 mg PO DAILY #12 tablet 09/22/19 New Medications: Levofloxacin [Levaquin] 500 mg PO DAILY #12 tablet Patient Discharge Instructions: follow up with PCP. -call for appointment with me [phone] Diet: Regular Activity: Ad luz Time spent managing pt's care (in minutes): 40
[2019-09-22 12:06] VITALS: BP 125/81; TEMP 98.2
[2019-09-23] MEDS ORDERED: VANCOMYCIN/NS 1 gm 1 GM/250 ML BAG IV SCH (03:00)
== END 2019-09-22 13:00 | disposition home or self-care (01) | DRG 872 ==
LOC: ER 18:52 → ERHOLD 21:40 → 2ND 21:51
PROVIDERS: ADMIT Family Medicine; ATTEND Internal Medicine
DX: A41.50 Gram-negative sepsis, unspecified (principal); N10 Acute pyelonephritis; E87.1 Hypo-osmolality and hyponatremia; Q61.3 Polycystic kidney, unspecified; N17.9 Acute kidney failure, unspecified; E87.6 Hypokalemia; E86.0 Dehydration
CPT/HCPCS: 36415; 71045; 74177; 80048; 80053; 80076; 80202; 81003; 81015; 82550; 82553; 82947; 83605; 83690; 83735; 84100; 84145; 84484; 85025; 85610; 85730; 87040; 87077; 87086; 87088; 87186; 87205; 87804; 93005; 93306; 96361; 96365; 96366; 96374; 96375; 99285; J3370; J7030; J7040; Q9967